=== PATIENT | female | born 1955 | race Caucasian/White ===

== ENCOUNTER 2016-06-10 20:31 | Inpatient (IN) | payer OTHER ==
[2016-06-10] MEDS ORDERED: NORMAL SALINE 1000 ML 2,000 ML IV PRN (21:38)
--- NOTE | 2016-06-10 21:44 | EKG REPORT ---
SEVERITY:- BORDERLINE ECG - SINUS TACHYCARDIA BORDERLINE T ABNORMALITIES, ANT-LAT LEADS : Confirmed by: Agustin Johns 10-Jun-2016 21:44:21
--- NOTE | 2016-06-10 21:49 | ER Document Report ---
ED General - General Chief Complaint: General Weakness Stated Complaint: WEAKNESS Time seen by provider: 21:46 Mode of Arrival: Medic Information source: Patient, Relative - son TRAVEL OUTSIDE OF THE [place] IN LAST 30 DAYS: No - HPI Patient complains to provider of: generalized weakness Onset: Just prior to arrival Onset/Duration: Sudden Quality of pain: No pain Associated symptoms: Nausea, Vomiting Exacerbated by: Denies Relieved by: Denies Similar symptoms previously: No Recently seen / treated by doctor: No Notes: Patient is a 61-year-old female brought to the emergency room by EMS after son called reporting patient to have generalized weakness and not acting herself throughout the day today, patient did have some vomiting earlier in the day, states her last urination was early this morning, she reports she had some flank pain yesterday evening but that has since resolved, she has some pressure sensation at the end of urination but denies any actual dysuria, patient denies any symptoms at present time, no sick contacts - Related Data Allergies/Adverse Reactions: No Known Drug Allergies Allergy (Verified 04/11/14 18:01) Past Medical History - General Information source: Patient - Social History Smoking Status: Never Smoker Family History: Reviewed & Not Pertinent - Past Medical History Cardiac Medical History: Reports: Hx Hypertension Endocrine Medical History: Reports: Hx Diabetes Mellitus Type 2 Past Surgical History: Reports: Hx Section, Hx Cholecystectomy - Immunizations Hx Diphtheria, Pertussis, Tetanus Vaccination: Yes Review of Systems - Review of Systems Constitutional: Malaise, Weakness EENT: No symptoms reported Cardiovascular: No symptoms reported Respiratory: No symptoms reported Gastrointestinal: Vomiting, Poor appetite, Poor fluid intake Genitourinary: Dysuria Female Genitourinary: No symptoms reported Musculoskeletal: No symptoms reported Skin: No symptoms reported Hematologic/Lymphatic: No symptoms reported Neurological/Psychological: No symptoms reported -: Yes All other systems reviewed and negative Physical Exam - Vital signs Vitals: Resp 16 06/10/16 21:02 Interpretation: Hypotensive, Tachycardic - General General appearance: Alert In distress: None - HEENT Head: Normocephalic, Atraumatic Eyes: Normal Conjunctiva: Normal Extraocular movements intact: Yes Eyelashes: Normal Pupils: PERRL Mucous membranes: Dry - Respiratory Respiratory status: No respiratory distress Chest status: Nontender Breath sounds: Normal Chest palpation: Normal - Cardiovascular Rhythm: Regular Heart sounds: Normal auscultation Murmur: No - Abdominal Inspection: Morbidly Obese Distension: No distension Bowel sounds: Normal Tenderness: Nontender Organomegaly: No organomegaly - Extremities General upper extremity: Normal inspection, Nontender, Normal color, Normal ROM , Normal temperature General lower extremity: Normal inspection, Nontender, Normal color, Normal ROM , Normal temperature. No: Mignon's sign - Neurological Neuro grossly intact: Yes Cognition: Normal Orientation: AAOx4 Tommy Coma Scale Eye Opening: Spontaneous Tommy Coma Scale Verbal: Oriented Mack Coma Scale Motor: Obeys Commands Mack Coma Scale Total: 15 Speech: Normal Motor strength normal: LUE, RUE, LLE, RLE Sensory: Normal - Psychological Associated symptoms: Normal affect, Normal mood - Skin Skin Temperature: Warm Skin Moisture: Dry Skin Color: Normal Course - Re-evaluation Re-evalutation: 06/11/16 03:56 Patient discussed with the hospitalist who agrees to admit for further evaluation and treatment - Vital Signs Vital signs: Temp Pulse Resp BP Pulse Ox 98.6 F 98 17 129/80 H 06/11/16 01:01 06/10/16 21:38 06/11/16 03:17 06/11/16 03:17 - Laboratory Result Diagrams: 06/10/16 21:35 06/10/16 22:38 Laboratory results interpreted by me: 06/10/16 06/10/16 06/10/16 21:35 22:05 22:38 WBC 27.1 H Seg Neuts % (Manual) 81 H Band Neutrophils % 9 H Lymphocytes % (Manual) 5 L Metamyelocytes % 1 H Abs Neuts (Manual) 24.7 H Sodium 134.4 L Potassium 6.6 H* Carbon Dioxide 19 L BUN 47 H Creatinine 2.65 H Est GFR ( Amer) 22 L Est GFR (Non-Af Amer) 18 L Glucose 342 H Urine Protein 100 H Urine Glucose (UA) 50 H Urine Blood MODERATE H Urine Nitrite POSITIVE H Ur Leukocyte Esterase LARGE H - Diagnostic Test Radiology reviewed: Image reviewed, Reports reviewed - EKG Interpretation by Me EKG shows normal: Sinus rhythm Rate: Tachycardia - Transfer of Care Care transferred to following provider: Dr. Magaña Critical Care Note - Critical Care Note Total time excluding time spent on procedures (mins): 60 Comments: Patient arrived hypotensive and tachycardic, with signs of sepsis, admitted to [facility] for further evaluation and treatment Discharge - Discharge Clinical Impression: Hyperkalemia Urinary tract infection Qualifiers: Urinary tract infection type: site unspecified Hematuria presence: without hematuria Qualified Code(s): N39.0 - Urinary tract infection, site not specified Acute renal failure Qualifiers: Acute renal failure type: unspecified Qualified Code(s): N17.9 - Acute kidney failure, unspecified Sepsis Qualifiers: Sepsis type: sepsis due to unspecified organism Qualified Code(s): A41.9 - Sepsis, unspecified organism Condition: Serious Disposition: ADMITTED INPATIENT Admitting Provider: Hospitalist Unit Admitted: [facility]
[2016-06-10 22:05] LABS: HEMATOCRIT 40.2 % (36.0-47.0); HEMOGLOBIN 13.1 g/dL (12.0-15.5); HGB HCT DIFFERENCE -0.9; MEAN CORPUSCULAR HEMOGLOBIN 28.8 pg (27.0-33.4); MEAN CORPUSCULAR HGB CONC 32.5 g/dL (32.0-36.0); MEAN CORPUSCULAR VOLUME 89 fl (80-97); RED BLOOD COUNT 4.54 10^6/uL (3.72-5.28); RED CELL DISTRIBUTION WIDTH 13.4 % (11.5-14.0); WHITE BLOOD COUNT 27.1 10^3/uL (4.0-10.5)
[2016-06-10 22:23] LABS: BAND NEUTROPHILS % (MANUAL) 9 % (3-5); BASOPHILS % (MANUAL) 0 % (0-2); EOSINOPHILS % (MANUAL) 0 % (0-6); LYMPHOCYTES % (MANUAL) 5 % (13-45); TOTAL CELLS COUNTED 100
[2016-06-10 22:24] LABS: RBC MORPHOLOGY COMMENT NORMO-CYTIC/CHROMIC
[2016-06-10 22:29] LABS: AMORPHOUS SEDIMENT,URINE TRACE /HPF; APPEARANCE,URINE CLOUDY; BILIRUBIN,URINE NEGATIVE (NEGATIVE); GLUCOSE, URINE 50 mg/dL (NEGATIVE); KETONES,URINE NEGATIVE (NEGATIVE); LEUKOCYTE ESTERASE,URINE LARGE (NEGATIVE); NITRITE,URINE POSITIVE (NEGATIVE); PROTEIN,URINE 100 mg/dL (NEGATIVE); URINE SPECIFIC GRAVITY 1.014; UROBILINOGEN,URINE NEGATIVE mg/dL (<2.0)
[2016-06-10] MEDS ORDERED: CEFTRIAXONE INJ 1000 MG VIAL IV ONE (22:36)
[2016-06-10 23:09] LABS: ALANINE AMINOTRANSFERASE 33 U/L (9-52); ALBUMIN 4.2 g/dL (3.5-5.0); ALKALINE PHOSPHATASE 60 U/L (38-126); ANION GAP 14 (5-19); ASPARTATE AMINO TRANSFERASE 24 U/L (14-36); BILIRUBIN,TOTAL 0.7 mg/dL (0.2-1.3); BLOOD UREA NITROGEN 47 mg/dL (7-20); CARBON DIOXIDE 19 mmol/L (22-30); CHLORIDE 101 mmol/L (98-107); CREATINE KINASE 31 U/L (30-135); CREATININE RESULT 2.65 mg/dL (0.52-1.25); GLUCOSE 342 mg/dL (75-110); LIPASE 80.5 U/L (23-300); SODIUM 134.4 mmol/L (137-145); TOTAL PROTEIN 7.1 g/dL (6.3-8.2)
[2016-06-10 23:12] LABS: POTASSIUM 6.6 mmol/L (3.6-5.0)
[2016-06-10] MEDS ORDERED: CALCIUM GLUCONATE 1000 MG/10 ML INJ IV ONE (23:15)
[2016-06-10] MEDS ORDERED: DEXTROSE 50%-WATER 25 GM/50 ML DISP.SYRIN IV ONE (23:15)
[2016-06-10] MEDS ORDERED: INSULIN REG, HUMAN 100 UNIT/ML 3 ML VIAL (PYX) IV ONE (23:15)
[2016-06-10] MEDS ORDERED: SODIUM POLYSTYRENE SULFONATE 15 GM/60 ML PO ONE (23:15)
[2016-06-10] MEDS ORDERED: NORMAL SALINE 1000 ML 1,000 ML IV PRN (23:25)
[2016-06-10 23:36] LABS: CREATINE KINASE MB < 0.22 ng/mL (<4.55)
[2016-06-10 23:37] LABS: TROPONIN I 0.035 ng/mL
[2016-06-11] MEDS ORDERED: DEXTROSE 50%-WATER 25 GM/50 ML DISP.SYRIN IV ONE (00:09)
[2016-06-11 04:45] LABS: ANION GAP 12 (5-19); BLOOD UREA NITROGEN 49 mg/dL (7-20); CALCIUM 9.3 mg/dL (8.4-10.2); CARBON DIOXIDE 21 mmol/L (22-30); CHLORIDE 103 mmol/L (98-107); CREATININE RESULT 2.84 mg/dL (0.52-1.25); GLUCOSE 279 mg/dL (75-110); SODIUM 136.3 mmol/L (137-145)
[2016-06-11 04:53] LABS: POTASSIUM 4.8 mmol/L (3.6-5.0)
[2016-06-11] MEDS ORDERED: DEXTROSE 50%-WATER 25 GM/50 ML DISP.SYRIN IV PRN ×2 (06:20)
[2016-06-11] MEDS ORDERED: DEXTROSE 40% GEL 15 GM TUBE PO PRN ×2 (06:20)
[2016-06-11] MEDS ORDERED: GLUCAGON,HUMAN RECOMB 1 MG INJ IM PRN (06:20)
[2016-06-11] MEDS ORDERED: PHARMACY COMMUNICATION ORDER MC SCH (06:30)
[2016-06-11] MEDS: NORMAL SALINE 1000 ML 1,000 ML IV PRN ×2 (06:54→18:27)
[2016-06-11 07:56] LABS: HEMATOCRIT 35.4 % (36.0-47.0); HEMOGLOBIN 11.7 g/dL (12.0-15.5); HGB HCT DIFFERENCE -0.3; MEAN CORPUSCULAR HGB CONC 32.9 g/dL (32.0-36.0); MEAN CORPUSCULAR VOLUME 88 fl (80-97); RED BLOOD COUNT 4.02 10^6/uL (3.72-5.28); RED CELL DISTRIBUTION WIDTH 13.6 % (11.5-14.0); WHITE BLOOD COUNT 24.8 10^3/uL (4.0-10.5)
[2016-06-11 08:08] LABS: ANION GAP 12 (5-19); BLOOD UREA NITROGEN 49 mg/dL (7-20); CARBON DIOXIDE 21 mmol/L (22-30); CHLORIDE 105 mmol/L (98-107); CREATININE RESULT 2.89 mg/dL (0.52-1.25); GLUCOSE 287 mg/dL (75-110); MAGNESIUM 1.3 mg/dL (1.6-2.3); POTASSIUM 4.8 mmol/L (3.6-5.0); SODIUM 138.1 mmol/L (137-145)
[2016-06-11 08:27] LABS: BAND NEUTROPHILS % (MANUAL) 3 % (3-5); BASOPHILS % (MANUAL) 0 % (0-2); EOSINOPHILS % (MANUAL) 0 % (0-6); LYMPHOCYTES % (MANUAL) 5 % (13-45); TOTAL CELLS COUNTED 100
[2016-06-11 08:29] LABS: PLATELET CLUMPS PRESENT; RBC MORPHOLOGY COMMENT NORMO-CYTIC/CHROMIC; TOXIC GRANULATION SLIGHT; TOXIC VACUOLATION PRESENT
[2016-06-11] MEDS: INSULIN LISPRO 100 UNIT/ML 3 ML VIAL SUBCUT PRN ×3 (09:00→23:25)
[2016-06-11] MEDS: DOCUSATE SODIUM 100 MG CAPSULE PO SCH ×2 (09:17→18:15)
--- NOTE | 2016-06-11 09:23 | PDOC H&P ---
History of Present Illness Admission Date/PCP: 06/11/16 02:04 MODE PEREZ Patient complains of: weakness History of Present Illness: ANNETTE GIBBS is a 61 year old morbidly obese type II diabetic female with underlying lower extremity diabetic neuropathy, easy bruising, and history of nephrolithiasis who presents to the emergency room for evaluation of approximate 24-hour history of progressive generalized weakness, several episodes of nausea and vomiting, and "liz" diarrhea. Weakness has progressed to the point since the onset of symptoms that she is not able to walk. No unusual oral intake. No friends or family with similar complaints. No fever or chills, chest or abdominal pain. In fact, denies any pain at all. Of note, very difficult getting any type of significant history from patient. Virtually all questions are answered with a simple "yes" or "no." She elaborates on virtually nothing. 2 sons are present by her side, with her approval, and do add a bit more information, but not much. Patient has been discussed with emergency room physician who evaluated the patient. . Laboratory results are listed in [employer] and are reviewed. X-ray summary results are listed below, with full report(s) reviewed. . EKG reviewed. And compared to tracing from September 102013. Social history/personal habits: . Son lives with her. 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 Normally she is ambulatory. No use of alcohol tobacco or illicit drugs. Allergies/adverse reactions are listed in [employer] and are reviewed. Home medications are reviewed bottle review and discussion with patient and [facility] Home medications initially autopopulated into [employer] may not accurately reflect patient's true medications, dosages, and/or frequencies. REVIEW OF SYSTEMS: Constitutional: No fever or chills. Eyes: Legally blind. ENT: No swallowing problems or complaints. No hearing problems or complaints. Pulmonary: No current complaints. Cardiovascular: No current complaints, including chest pain. Gastrointestinal: See history and present illness. Skin: No current complaints, including rashes. Hematologic: Easy bruising. Neurologic: Bilateral lower extremity neuropathy. Musculoskeletal: No current complaints, including painful joints. Psychiatric: No current complaints, including anxiety or depression. Endocrine: No current complaints, including polyuria. Genitourinary: No current complaints, including dysuria. PHYSICAL EXAMINATION: 5 feet 6 inches tall. 119.4 kg. BMI 42.5 kg/m. Blood pressure 119/87. Respirations are 20 and unlabored. Pulse 116 and regular. 92% saturation on room air. Morbidly obese somewhat chronically ill-appearing female who appears a number of years older than her stated age. Somewhat fatigued appearance. Female emergency room nurse Kelsi present. Skin is warm and dry. No grossly obvious evidence of rash in areas of skin examined. No subcutaneous nodules palpated. ENT: Hearing grossly normal to normal conversation. Tongue midline on protrusion pink and slightly tacky. Eyes: No scleral icterus. Pupils equal and reactive to light at 4 mm. [place] conjunctivae. Neck is supple and nontender to gentle active range of motion and palpation. Midline trachea. No palpable thyroid nodule mass enlargement or tenderness. Lymphatic: No palpable cervical or clavicular nodes. Neck and lymphatic exams limited by patient body habitus. Psychiatric: Fair to reasonable insight into acute and chronic medical issues. Oriented to time location and why here. Rather flat affect. Slightly odd affect at times. Very stoic individual. Lungs: Auscultation reveals clear and equal breath sounds bilaterally. No use of accessory respiratory muscles. Cardiovascular: Heart regular rate and rhythm, without gallop murmur or rub. No carotid or abdominal aortic bruits. No ankle or pedal edema. Faintly palpable dorsalis pedis pulses. Abdomen: soft, obese, nontender with positive bowel sounds. Unable to adequately evaluate abdomen for masses or organomegaly due to body habitus. Extremities: Feet are warm and dry. No calf tenderness to compression. No grossly obvious visual evidence of calf swelling. Gentle manipulation of lower extremities fails to reveal any obvious evidence of injury or instability to knees hips or ankles. Neurologic: Moves upper extremities grossly normally. Patellar reflexes 1+ and symmetric. Absent Babinski. Light touch decreased at feet, a chronic finding according to patient.. Dorsiflexion and plantarflexion of feet 5 / 5 and symmetric. Past Medical History Cardiac Medical History: Reports: Hypertension Denies: Congestive Heart Failure, DVT, Myocardial Infarction, Hyperlipidema, Pulmonary Embolism Pulmonary Medical History: Denies: Asthma, Chronic Obstructive Pulmonary Disease (COPD) EENT Medical History: Reports: Eyes - Legally blind Denies: Ears, Throat Neurological Medical History: Reports: Other - Diabetic neuropathy affecting her lower extremities. Denies: Hemorrhagic CVA, Ischemic CVA, Seizures Endocrine Medical History: Reports: Diabetes Mellitus Type 2 Denies: Diabetes Mellitus Type 1, Hyperthyroidism, Hypothyroidism Renal/ Medical History: Reports: Other - History of nephrolithiasis, 2016 Denies: Chronic Kidney Disease GI Medical History: Denies: Cirrhosis, Gastroesophageal Reflux Disease, Hepatitis, Peptic Ulcer Disease Musculoskeltal Medical History: Reports: None Skin Medical History: Reports: None Denies: Eczema, Psoriasis Psychiatric Medical History: Denies: Alcohol Dependency, Depression, General Anxiety Disorder, Substance Abuse, Tobacco Dependency Hematology: Reports: Other - Easy bruising Infectious Medical History: Denies: Hepatitis B, Hepatitis C Past Surgical History Past Surgical History: Reports: Section, Cholecystectomy Social History Information Source: Patient, Relative, Emergency Med Personnel, [facility] Records Lives with: Family Smoking Status: Never Smoker Frequency of Alcohol Use: None Hx Recreational Drug Use: No Hx Prescription Drug Abuse: No - Advance Directive Resuscitation Status: Full Code Surrogate healthcare decision maker:: Sons Family History Family History: Reviewed & Not Pertinent Parental Family History Reviewed: Yes Children Family History Reviewed: Yes Sibling(s) Family History Reviewed.: Yes Medication/Allergy Home Medications: Gabapentin [Neurontin 300 mg Capsule] 300 mg PO TID 09/10/13 Aspirin [Aspirin 325 mg Tablet] 325 mg PO DAILY 06/11/16 Nystatin [Mycostatin Topical Powder 15 gm] 1 applic TP BID #1 bottle 06/17/16 Sitagliptin Phosphate [Januvia 50 mg Tablet] 50 mg PO BIDACBS #60 tablet Allergies/Adverse Reactions: ciprofloxacin [From Cipro] Allergy (Verified 06/11/16 07:10) clindamycin Adverse Reaction (Verified 06/11/16 07:10) Physical Exam Vital Signs: Temp Pulse Resp BP Pulse Ox 98.6 F 112 H 22 H 123/67 90 L 06/11/16 03:38 06/11/16 03:38 06/11/16 05:01 06/11/16 05:01 06/11/16 05:01 Results Laboratory Results: 06/11/16 04:16 06/11/16 04:16 Sodium 136.3 L Potassium 4.8 D Chloride 103 Carbon Dioxide 21 L Anion Gap 12 BUN 49 H Creatinine 2.84 H Est GFR ( Amer) 20 L Est GFR (Non-Af Amer) 17 L Glucose 279 H Calcium 9.3 Impressions: Chest X-Ray 06/10/16 22:28 IMPRESSION: No acute radiographic finding in the chest. Renal Ultrasound 06/11/16 00:00 IMPRESSION: No hydronephrosis. No renal calculi identified by ultrasound. Assessment & Plan - Diagnosis (1) HTN (hypertension) Qualifiers: Hypertension type: essential hypertension Qualified Code(s): I10 - Essential (primary) hypertension Is this a current diagnosis for this admission?: YesPlan: Resume home medications as appropriate once these have been reviewed. (2) Diabetes mellitus type 2 in obese Is this a current diagnosis for this admission?: YesPlan: Resume home medications as appropriate once these have been reviewed. Accu- Cheks with appropriate sliding scale coverage. (3) Urinary tract infection Qualifiers: Urinary tract infection type: site unspecified Hematuria presence: with hematuria Qualified Code(s): N39.0 - Urinary tract infection, site not specified Is this a current diagnosis for this admission?: YesPlan: Blood and urine cultures. Rocephin. I have strongly encouraged patient not to get out of bed without notifying staff , to avoid a fall with injury. Knee high SCDs for DVT prophylaxis, along with subcutaneous heparin. Impression and plans were discussed with patient, and sons, all of whom concur. Time spent in evaluation and management of patient: 61 minutes. (4) Acute renal failure Qualifiers: Acute renal failure type: unspecified Qualified Code(s): N17.9 - Acute kidney failure, unspecified Is this a current diagnosis for this admission?: YesPlan: Suspect mostly prerenal in origin, with nausea vomiting, some diarrhea, and poor by mouth intake over the last day or so. IV fluids. Follow-up chemistry. (5) Hyperkalemia Is this a current diagnosis for this admission?: YesPlan: Resolved with treatment. Follow-up chemistry. - Inpatient Certification Based on my medical assessment, after consideration of the patient's comorbidities, presenting symptoms, or acuity I expect that the services needed warrant INPATIENT care.: Yes I certify that my determination is in accordance with my understanding of Medicare's requirements for reasonable and necessary INPATIENT services [42 CFR 412.3e].: Yes Medical Necessity: Need Close Monitoring Due to Risk of Patient Decompensation, Need For IV Fluids, Need For Continuous Telemetry Monitoring, Need for IV Antibiotics, Risk of Complication if Not Cared For in Hospital, Risk of Diagnosis Which Will Require Inpatient Eval/Care/Monitoring Post Hospital Care: D/C or Transfer Summary
[2016-06-11] MEDS ORDERED: GABAPENTIN 300 MG CAPSULE PO SCH (10:00)
[2016-06-11] MEDS ORDERED: CEFTRIAXONE 1 GM/D5W RTU 50 ML IV SCH (10:00)
[2016-06-11] MEDS: ASPIRIN 325 MG TABLET PO SCH (10:22)
[2016-06-11] MEDS ORDERED: MAGNESIUM SULFATE/D5W 1 GM/100 ML RTUPB IV ONE (10:30)
[2016-06-11] MEDS: HEPARIN SOD (PORCINE) 5,000 UNIT/ML 1 ML SYRINGE SUBCUT SCH ×2 (13:25→23:25)
[2016-06-11] MEDS: ACETAMINOPHEN 325 MG TABLET PO PRN ×2 (15:51→23:36)
[2016-06-11] MEDS ORDERED: NORMAL SALINE 500 ML IV ONE (16:45)
[2016-06-11] MEDS: NYSTATIN TOPICAL POWDER 15 GM TP SCH (18:26)
[2016-06-11] MEDS ORDERED: VANCOMYCIN HCL 0 MG in DEXTROSE 5%-WATER 250 ML IV NR (21:30)
[2016-06-11] MEDS ORDERED: VANCOMYCIN HCL 1,500 MG in DEXTROSE 5%-WATER 250 ML IV ONE (22:00)
[2016-06-11] MEDS ORDERED: CEFEPIME HCL 2 GM in DEXTROSE 5%-WATER 50 ML IV SCH (22:00)
[2016-06-11] MEDS ORDERED: CEFEPIME 2 GM/D5W RTU 50 ML IV SCH (22:00)
[2016-06-11] MEDS ORDERED: INSULIN LISPRO 100 UNIT/ML 3 ML VIAL ONE (23:12)
[2016-06-11] MEDS: NORMAL SALINE 1000 ML 1,000 ML IV SCH (23:45)
[2016-06-12] MEDS: ACETAMINOPHEN 325 MG TABLET PO PRN (01:13)
[2016-06-12] MEDS: NORMAL SALINE 1000 ML 1,000 ML IV SCH (02:01)
[2016-06-12] MEDS ORDERED: ACETAMINOPHEN 325 MG TABLET PO PRN ×3 (02:38→08:42)
[2016-06-12] MEDS: HEPARIN SOD (PORCINE) 5,000 UNIT/ML 1 ML SYRINGE SUBCUT SCH ×3 (05:20→22:55)
[2016-06-12 05:24] LABS: HEMATOCRIT 31.7 % (36.0-47.0); HEMOGLOBIN 10.3 g/dL (12.0-15.5); HGB HCT DIFFERENCE -0.8; MEAN CORPUSCULAR HEMOGLOBIN 28.6 pg (27.0-33.4); MEAN CORPUSCULAR HGB CONC 32.5 g/dL (32.0-36.0); MEAN CORPUSCULAR VOLUME 88 fl (80-97); RED CELL DISTRIBUTION WIDTH 13.5 % (11.5-14.0); WHITE BLOOD COUNT 14.8 10^3/uL (4.0-10.5)
[2016-06-12 05:51] LABS: ANION GAP 10 (5-19); BLOOD UREA NITROGEN 53 mg/dL (7-20); CALCIUM 7.4 mg/dL (8.4-10.2); CARBON DIOXIDE 18 mmol/L (22-30); CHLORIDE 108 mmol/L (98-107); CREATININE RESULT 2.78 mg/dL (0.52-1.25); GLUCOSE 180 mg/dL (75-110); MAGNESIUM 1.4 mg/dL (1.6-2.3); POTASSIUM 4.5 mmol/L (3.6-5.0); SODIUM 135.8 mmol/L (137-145)
[2016-06-12] MEDS: NORMAL SALINE 1000 ML 1,000 ML IV PRN ×3 (06:02→22:55)
--- NOTE | 2016-06-12 08:57 | PDOC PROGRESS REPORT ---
Subjective Progress Note for:: 06/12/16 Subjective:: Patient admitted for altered mental status, hypotension, sepsis, UTI. Episode of low blood pressure last night requiring bolus of normal saline as reported. Had temperature spikes as well. Patient placed on cooling blanket. On a needed Tylenol as well. Patient denies any diarrhea at all. Denies coughing or chest congestion. No paroxysmal nocturnal dyspnea nor orthopnea. Patient reports nausea with food intake. No vomiting however. Urine culture growing gram-negative rods. Ceftriaxone was shifted to cefepime. Vancomycin was likewise started. Physical Exam Vital Signs: Temp Pulse Resp BP Pulse Ox 101.0 F H 123 H 19 115/68 92 06/12/16 07:28 06/12/16 07:28 06/12/16 07:28 06/12/16 07:28 06/12/16 07:28 Intake & Output 06/11/16 06/12/16 06/13/16 06:59 06:59 06:59 Intake Total 5921 Output Total 750 Balance 5171 Weight 119.4 kg 141.8 kg General appearance: PRESENT: no acute distress, morbidly obese Head exam: PRESENT: normocephalic Eye exam: PRESENT: EOMI Mouth exam: PRESENT: moist, neck supple Neck exam: ABSENT: JVD Respiratory exam: PRESENT: clear to auscultation fara. ABSENT: rhonchi, wheezes Cardiovascular exam: PRESENT: RRR. ABSENT: gallop GI/Abdominal exam: PRESENT: normal bowel sounds, soft, tenderness - Minimal diffusely Extremities exam: PRESENT: other - Trace edema bilateral. RAMIRO hose in place. Neurological exam: PRESENT: alert, awake, oriented to situation Skin exam: PRESENT: dry, warm. ABSENT: cyanosis Results Laboratory Results: 06/12/16 05:05 06/12/16 05:05 06/12/16 06/12/16 05:05 05:05 WBC 14.8 H RBC 3.60 L Hgb 10.3 L Hct 31.7 L MCV 88 MCH 28.6 MCHC 32.5 RDW 13.5 Plt Count 169 Sodium 135.8 L Potassium 4.5 Chloride 108 H Carbon Dioxide 18 L Anion Gap 10 BUN 53 H Creatinine 2.78 H Est GFR ( Amer) 21 L Est GFR (Non-Af Amer) 17 L Glucose 180 H Calcium 7.4 L Magnesium 1.4 L 06/11/16 07:40 Troponin I 0.029 Impressions: Chest X-Ray 06/10/16 22:28 IMPRESSION: No acute radiographic finding in the chest. Renal Ultrasound 06/11/16 00:00 IMPRESSION: No hydronephrosis. No renal calculi identified by ultrasound. Assessment & Plan - Diagnosis (1) Hypotension Qualifiers: Hypotension type: unspecified hypotension type Qualified Code(s): I95.9 - Hypotension, unspecified Is this a current diagnosis for this admission?: Yes (2) Acute renal failure Qualifiers: Acute renal failure type: unspecified Qualified Code(s): N17.9 - Acute kidney failure, unspecified Is this a current diagnosis for this admission?: Yes (3) Sepsis Qualifiers: Sepsis type: sepsis due to unspecified organism Qualified Code(s): A41.9 - Sepsis, unspecified organism (4) Hyperkalemia Is this a current diagnosis for this admission?: Yes (5) Urinary tract infection Qualifiers: Urinary tract infection type: site unspecified Hematuria presence: with hematuria Qualified Code(s): N39.0 - Urinary tract infection, site not specified Is this a current diagnosis for this admission?: Yes (6) Diabetes mellitus type 2 in obese Is this a current diagnosis for this admission?: Yes (7) HTN (hypertension) Qualifiers: Hypertension type: essential hypertension Qualified Code(s): I10 - Essential (primary) hypertension Is this a current diagnosis for this admission?: Yes (8) Morbid obesity with BMI of 40.0-44.9, adult Is this a current diagnosis for this admission?: Yes (9) Peripheral neuropathy Qualifiers: Peripheral neuropathy type: polyneuropathy, unspecified Qualified Code(s): G62.9 - Polyneuropathy, unspecified Is this a current diagnosis for this admission?: Yes - Time Time Spent with patient: 25-34 minutes - Plan Summary Plan Summary: We will go ahead and change the antibiotics to Invanz. Possibility of ESBL infection. History of Escherichia coli in the past. Change Tylenol 2 every 4 hours as needed. Cooling blanket to keep temperature below 100F. Continue hydration. Continue to monitor for congestion and serum creatinine. Level is improving slowly. We'll try to advance her diet. Continue supportive care.
[2016-06-12] MEDS ORDERED: GABAPENTIN 100 MG CAPSULE PO SCH (10:00)
[2016-06-12] MEDS ORDERED: ERTAPENEM SODIUM INJ 1 GM VIAL IV SCH (10:00)
[2016-06-12] MEDS: ASPIRIN 325 MG TABLET PO SCH (10:36)
[2016-06-12] MEDS: DOCUSATE SODIUM 100 MG CAPSULE PO SCH ×2 (10:36→17:18)
[2016-06-12] MEDS: NYSTATIN TOPICAL POWDER 15 GM TP SCH ×2 (10:37→17:20)
[2016-06-12] MEDS: INSULIN LISPRO 100 UNIT/ML 3 ML VIAL SUBCUT PRN ×4 (10:42→23:17)
[2016-06-12] MEDS: ERTAPENEM SODIUM 1 GM in NORMAL SALINE 50 ML IV SCH (12:44)
[2016-06-12] MEDS: GABAPENTIN 300 MG CAPSULE PO SCH (17:19)
[2016-06-12] MEDS ORDERED: VANCOMYCIN HCL 1,000 MG in DEXTROSE 5%-WATER 250 ML IV SCH (22:00)
[2016-06-13] MEDS: GABAPENTIN 300 MG CAPSULE PO SCH ×3 (01:39→19:55)
[2016-06-13 05:27] LABS: HEMATOCRIT 30.5 % (36.0-47.0); HGB HCT DIFFERENCE -0.5; MEAN CORPUSCULAR HEMOGLOBIN 28.9 pg (27.0-33.4); MEAN CORPUSCULAR HGB CONC 32.6 g/dL (32.0-36.0); MEAN CORPUSCULAR VOLUME 89 fl (80-97); RED BLOOD COUNT 3.44 10^6/uL (3.72-5.28); RED CELL DISTRIBUTION WIDTH 13.6 % (11.5-14.0); WHITE BLOOD COUNT 7.4 10^3/uL (4.0-10.5)
[2016-06-13] MEDS: HEPARIN SOD (PORCINE) 5,000 UNIT/ML 1 ML SYRINGE SUBCUT SCH (05:34)
[2016-06-13 05:42] LABS: ANION GAP 8 (5-19); BLOOD UREA NITROGEN 55 mg/dL (7-20); CALCIUM 7.3 mg/dL (8.4-10.2); CARBON DIOXIDE 18 mmol/L (22-30); CHLORIDE 109 mmol/L (98-107); CREATININE RESULT 2.99 mg/dL (0.52-1.25); GLUCOSE 175 mg/dL (75-110); POTASSIUM 4.4 mmol/L (3.6-5.0); SODIUM 134.9 mmol/L (137-145)
[2016-06-13] MEDS: NORMAL SALINE 1000 ML 1,000 ML IV PRN ×2 (05:47→14:20)
[2016-06-13 09:28] LABS: ABSOLUTE EOSINOPHILS # (AUTO) 0.1 10^3/uL (0.0-0.6); ABSOLUTE LYMPHOCYTES (AUTO) 0.8 10^3/uL (0.5-4.7); ABSOLUTE MONOCYTES (AUTO) 0.4 10^3/uL (0.1-1.4); ABSOLUTE NEUT (AUTO) 5.6 10^3/uL (1.7-8.2); BASOPHILS % (AUTO) 0.6 % (0-2); EOSINOPHILS % (AUTO) 1.3 % (0-6); HEMATOCRIT 28.4 % (36.0-47.0); HEMOGLOBIN 9.1 g/dL (12.0-15.5); HGB HCT DIFFERENCE -1.1; LYMPHOCYTES % (AUTO) 10.9 % (13-45); MEAN CORPUSCULAR HEMOGLOBIN 28.6 pg (27.0-33.4); MEAN CORPUSCULAR HGB CONC 32.2 g/dL (32.0-36.0); MEAN CORPUSCULAR VOLUME 89 fl (80-97); MONOCYTES % (AUTO) 6.2 % (3-13); RED BLOOD COUNT 3.19 10^6/uL (3.72-5.28); RED CELL DISTRIBUTION WIDTH 13.7 % (11.5-14.0); WHITE BLOOD COUNT 6.9 10^3/uL (4.0-10.5)
[2016-06-13 10:24] LABS: ARTERIAL BLOOD BASE EXCESS -8.4 mmol/L; ARTERIAL BLOOD O2 SATURATION 95.5 % (94-98)
[2016-06-13] MEDS: ASPIRIN 325 MG TABLET PO SCH (10:31)
[2016-06-13] MEDS: DOCUSATE SODIUM 100 MG CAPSULE PO SCH ×2 (10:31→19:55)
[2016-06-13] MEDS: ERTAPENEM SODIUM 1 GM in NORMAL SALINE 50 ML IV SCH (10:31)
[2016-06-13] MEDS: NYSTATIN TOPICAL POWDER 15 GM TP SCH ×2 (10:33→19:33)
[2016-06-13] MEDS ORDERED: PHARMACY COMMUNICATION ORDER MC NR (11:00)
[2016-06-13 11:38] LABS: ALBUMIN 2.4 g/dL (3.5-5.0)
[2016-06-13 16:58] LABS: APPEARANCE,URINE CLOUDY; BILIRUBIN,URINE NEGATIVE (NEGATIVE); GLUCOSE, URINE NEGATIVE (NEGATIVE); KETONES,URINE NEGATIVE (NEGATIVE); LEUKOCYTE ESTERASE,URINE LARGE (NEGATIVE); NITRITE,URINE NEGATIVE (NEGATIVE); PROTEIN,URINE 30 mg/dL (NEGATIVE); URINE SPECIFIC GRAVITY 1.009; UROBILINOGEN,URINE NEGATIVE mg/dL (<2.0)
[2016-06-13 17:21] LABS: URINE CREATININE 52.9 mg/dL (15-278)
[2016-06-13] MEDS ORDERED: ERTAPENEM SODIUM 0.5 GM in NORMAL SALINE 50 ML IV SCH (18:00)
[2016-06-13] MEDS: INSULIN LISPRO 100 UNIT/ML 3 ML VIAL SUBCUT PRN (23:00)
--- NOTE | 2016-06-14 00:30 | PDOC PROGRESS REPORT ---
Subjective Progress Note for:: 06/13/16 Subjective:: Patient admits to constipation. Patient denies chest pain, shortness of breath, abdominal pain, nausea, vomiting , fevers, chills, diarrhea, headache, new onset weakness. Physical Exam Vital Signs: Temp Pulse Resp BP Pulse Ox 97.8 F 89 20 79/52 L 98 06/12/16 23:26 06/13/16 02:00 06/12/16 23:26 06/12/16 23:26 06/12/16 23:26 Intake & Output 06/12/16 06/13/16 06/14/16 06:59 06:59 06:59 Intake Total 5921 985 Output Total 750 945 Balance 5171 40 Weight 141.8 kg 141.8 kg Exam: General: Obese, older than stated age appearing, chronically ill-appearing, Awake alert and oriented x3, no acute respiratory distress HEENT: AT/NC, oropharynx is moist, pink, no scleral icterus, no conjunctival injection Neck: No JVD, trachea midline Chest: Clear to auscultation bilaterally, no wheezes rhonchi or rales CV: Regular rate and rhythm, normal S1 and S2, no murmur, rub, or gallop Abdomen: Soft, nontender to palpation, nondistended, active bowel sounds; no rebound, rigidity, or guarding Extremities: No cyanosis, clubbing or edema Neuro: Patient functionally blind, Cranial nerves III through XII are grossly intact without focal deficits; awake alert and oriented x3 Psych: Normal mood and affect Results Laboratory Results: 06/13/16 04:59 06/13/16 04:59 06/13/16 06/13/16 04:59 04:59 WBC 7.4 RBC 3.44 L Hgb 10.0 L Hct 30.5 L MCV 89 MCH 28.9 MCHC 32.6 RDW 13.6 Plt Count 117 L Sodium 134.9 L Potassium 4.4 Chloride 109 H Carbon Dioxide 18 L Anion Gap 8 BUN 55 H Creatinine 2.99 H Est GFR ( Amer) 19 L Est GFR (Non-Af Amer) 16 L Glucose 175 H Calcium 7.3 L 06/11/16 07:40 Troponin I 0.029 Impressions: Chest X-Ray 06/10/16 22:28 IMPRESSION: No acute radiographic finding in the chest. Renal Ultrasound 06/11/16 00:00 IMPRESSION: No hydronephrosis. No renal calculi identified by ultrasound. Assessment & Plan - Diagnosis (1) Sepsis Qualifiers: Sepsis type: Escherichia coli Qualified Code(s): A41.51 - Sepsis due to Escherichia coli [E. coli] Is this a current diagnosis for this admission?: YesPlan: Patient with Escherichia coli sepsis secondary to UTI. Continue Invanz pending second organism. (2) Acute renal failure Qualifiers: Acute renal failure type: unspecified Qualified Code(s): N17.9 - Acute kidney failure, unspecified Is this a current diagnosis for this admission?: YesPlan: Patient had hypotension requiring IV fluid bolus. Will increase patient's IV fluids at this time. Will repeat a urine sodium as I suspect patient is likely volume replete but is in the nonoliguric phase of ATN. Will consult nephrology. (3) ATN (acute tubular necrosis) Is this a current diagnosis for this admission?: Yes (4) Hyperkalemia Is this a current diagnosis for this admission?: Yes (5) Hypotension Qualifiers: Hypotension type: unspecified hypotension type Qualified Code(s): I95.9 - Hypotension, unspecified Is this a current diagnosis for this admission?: YesPlan: Improved with fluids (6) Urinary tract infection Qualifiers: Urinary tract infection type: site unspecified Hematuria presence: with hematuria Qualified Code(s): N39.0 - Urinary tract infection, site not specified Is this a current diagnosis for this admission?: Yes (7) Diabetes mellitus type 2 in obese Is this a current diagnosis for this admission?: YesPlan: Continue sliding scale insulin. (8) Morbid obesity with BMI of 40.0-44.9, adult Is this a current diagnosis for this admission?: Yes - Time Time Spent with patient: 25-34 minutes Medications reviewed and adjusted accordingly: Yes
[2016-06-14] MEDS: GABAPENTIN 300 MG CAPSULE PO SCH ×3 (01:26→17:56)
[2016-06-14] MEDS: NORMAL SALINE 1000 ML 1,000 ML IV PRN ×2 (07:40→13:23)
[2016-06-14 08:08] LABS: ABSOLUTE EOSINOPHILS # (AUTO) 0.1 10^3/uL (0.0-0.6); ABSOLUTE LYMPHOCYTES (AUTO) 0.9 10^3/uL (0.5-4.7); ABSOLUTE MONOCYTES (AUTO) 0.6 10^3/uL (0.1-1.4); ABSOLUTE NEUT (AUTO) 3.6 10^3/uL (1.7-8.2); BASOPHILS % (AUTO) 0.5 % (0-2); EOSINOPHILS % (AUTO) 2.4 % (0-6); HEMATOCRIT 28.3 % (36.0-47.0); HEMOGLOBIN 9.3 g/dL (12.0-15.5); HGB HCT DIFFERENCE -0.4; LYMPHOCYTES % (AUTO) 17.1 % (13-45); MEAN CORPUSCULAR HGB CONC 32.8 g/dL (32.0-36.0); MEAN CORPUSCULAR VOLUME 88 fl (80-97); MONOCYTES % (AUTO) 10.7 % (3-13); RED BLOOD COUNT 3.21 10^6/uL (3.72-5.28); SEGMENTED NEUTROPHILS % (AUTO) 69.3 % (42-78); WHITE BLOOD COUNT 5.3 10^3/uL (4.0-10.5)
[2016-06-14 08:31] LABS: ANION GAP 11 (5-19); BLOOD UREA NITROGEN 48 mg/dL (7-20); CALCIUM 7.8 mg/dL (8.4-10.2); CARBON DIOXIDE 17 mmol/L (22-30); CHLORIDE 111 mmol/L (98-107); CREATININE RESULT 2.39 mg/dL (0.52-1.25); GLUCOSE 145 mg/dL (75-110); MAGNESIUM 1.5 mg/dL (1.6-2.3); POTASSIUM 4.2 mmol/L (3.6-5.0); SODIUM 138.9 mmol/L (137-145)
[2016-06-14] MEDS: DOCUSATE SODIUM 100 MG CAPSULE PO SCH ×2 (10:18→17:58)
[2016-06-14] MEDS: ASPIRIN 325 MG TABLET PO SCH (10:18)
[2016-06-14] MEDS: NYSTATIN TOPICAL POWDER 15 GM TP SCH ×2 (10:19→17:57)
[2016-06-14] MEDS: INSULIN LISPRO 100 UNIT/ML 3 ML VIAL SUBCUT PRN ×3 (13:24→21:35)
[2016-06-14] MEDS ORDERED: NORMAL SALINE 1000 ML 1,000 ML IV PRN (16:03)
--- NOTE | 2016-06-14 17:15 | PDOC PROGRESS REPORT ---
Subjective Progress Note for:: 06/14/16 Subjective:: Patient is working with physical therapy when I see her. Patient reports an approximate one-week of severe weakness coinciding with her illness. Patient denies chest pain, shortness of breath, abdominal pain, nausea, vomiting , fevers, chills, diarrhea, constipation, headache, new onset weakness. Physical Exam Vital Signs: Temp Pulse Resp BP Pulse Ox 98.5 F 84 16 116/79 92 06/13/16 23:07 06/14/16 02:00 06/13/16 23:07 06/13/16 23:07 06/13/16 23:07 Intake & Output 06/13/16 06/14/16 06/15/16 06:59 06:59 06:59 Intake Total 3195 3364 Output Total 1625 2910 Balance 1570 454 Weight 138.6 kg 139.2 kg Exam: General: Obese, older than stated age appearing, chronically ill-appearing, Awake alert and oriented x3, no acute respiratory distress HEENT: AT/NC, oropharynx is moist, pink, no scleral icterus, no conjunctival injection Neck: No JVD, trachea midline Chest: Clear to auscultation bilaterally, no wheezes rhonchi or rales CV: Regular rate and rhythm, normal S1 and S2, no murmur, rub, or gallop Abdomen: Soft, nontender to palpation, nondistended, active bowel sounds; no rebound, rigidity, or guarding Extremities: No cyanosis, clubbing or edema Neuro: Patient functionally blind, Cranial nerves III through XII are grossly intact without focal deficits; awake alert and oriented x3 Psych: Normal mood and affect Results Laboratory Results: 06/13/16 09:20 06/13/16 04:59 06/13/16 06/13/16 06/13/16 09:20 10:12 11:15 WBC 6.9 RBC 3.19 L Hgb 9.1 L Hct 28.4 L MCV 89 MCH 28.6 MCHC 32.2 RDW 13.7 Plt Count 143 L Seg Neutrophils % 81.0 H Lymphocytes % 10.9 L Monocytes % 6.2 Eosinophils % 1.3 Basophils % 0.6 Absolute Neutrophils 5.6 Absolute Lymphocytes 0.8 Absolute Monocytes 0.4 Absolute Eosinophils 0.1 Absolute Basophils 0.0 Carbonic Acid 0.93 L HCO3/H2CO3 Ratio 17:1 ABG pH 7.34 L ABG pCO2 31.0 L ABG pO2 81.2 ABG HCO3 16.3 L ABG O2 Saturation 95.5 ABG Base Excess -8.4 FiO2 ROOM AIR Albumin 2.4 L Urine Color Urine Appearance Urine pH Ur Specific [place] Urine Protein Urine Glucose (UA) Urine Ketones Urine Blood Urine Nitrite Ur Leukocyte Esterase Urine WBC (Auto) Urine RBC (Auto) Stool Occult Blood 06/13/16 06/13/16 16:12 20:15 WBC RBC Hgb Hct MCV MCH MCHC RDW Plt Count Seg Neutrophils % Lymphocytes % Monocytes % Eosinophils % Basophils % Absolute Neutrophils Absolute Lymphocytes Absolute Monocytes Absolute Eosinophils Absolute Basophils Carbonic Acid HCO3/H2CO3 Ratio ABG pH ABG pCO2 ABG pO2 ABG HCO3 ABG O2 Saturation ABG Base Excess FiO2 Albumin Urine Color YELLOW Urine Appearance CLOUDY Urine pH 5.0 Ur Specific [place] 1.009 Urine Protein 30 H Urine Glucose (UA) NEGATIVE Urine Ketones NEGATIVE Urine Blood MODERATE H Urine Nitrite NEGATIVE Ur Leukocyte Esterase LARGE H Urine WBC (Auto) 71 Urine RBC (Auto) 6 Stool Occult Blood POSITIVE 06/11/16 07:40 Troponin I 0.029 Impressions: Chest X-Ray 06/10/16 22:28 IMPRESSION: No acute radiographic finding in the chest. Renal Ultrasound 06/11/16 00:00 IMPRESSION: No hydronephrosis. No renal calculi identified by ultrasound. Assessment & Plan - Diagnosis (1) Sepsis Qualifiers: Sepsis type: Escherichia coli Qualified Code(s): A41.51 - Sepsis due to Escherichia coli [E. coli] Is this a current diagnosis for this admission?: YesPlan: Patient with Escherichia coli sepsis secondary to UTI. Patient also growing out Streptococcus viridans. We'll transition patient to Augmentin renally adjusted. (2) Acute renal failure Qualifiers: Acute renal failure type: unspecified Qualified Code(s): N17.9 - Acute kidney failure, unspecified Is this a current diagnosis for this admission?: YesPlan: Patient had hypotension requiring IV fluid bolus. Will increase patient's IV fluids at this time. Given a high urine sodium as I suspect patient is likely volume replete but is in the nonoliguric phase of ATN. Will consult nephrology. (3) ATN (acute tubular necrosis) Is this a current diagnosis for this admission?: Yes (4) Hyperkalemia Is this a current diagnosis for this admission?: Yes (5) Hypotension Qualifiers: Hypotension type: unspecified hypotension type Qualified Code(s): I95.9 - Hypotension, unspecified Is this a current diagnosis for this admission?: Yes (6) Urinary tract infection Qualifiers: Urinary tract infection type: site unspecified Hematuria presence: with hematuria Qualified Code(s): N39.0 - Urinary tract infection, site not specified Is this a current diagnosis for this admission?: Yes (7) Diabetes mellitus type 2 in obese Is this a current diagnosis for this admission?: Yes (8) Morbid obesity with BMI of 40.0-44.9, adult Is this a current diagnosis for this admission?: Yes (9) Ambulatory dysfunction Is this a current diagnosis for this admission?: YesPlan: [facility] need [facility] go to [facility]. - Time Time Spent with patient: 25-34 minutes Medications reviewed and adjusted accordingly: Yes Anticipated discharge: Acute Rehab
[2016-06-14] MEDS ORDERED: MAGNESIUM SULFATE/D5W 1 GM/100 ML RTUPB IV ONE (18:00)
[2016-06-14] MEDS: AMOXICILLIN TR/POT CLAVULANATE 500-125 MG TAB PO SCH (21:30)
[2016-06-15] MEDS: GABAPENTIN 300 MG CAPSULE PO SCH ×3 (02:45→17:49)
[2016-06-15 09:43] LABS: ANION GAP 9 (5-19); BLOOD UREA NITROGEN 41 mg/dL (7-20); CALCIUM 8.6 mg/dL (8.4-10.2); CARBON DIOXIDE 20 mmol/L (22-30); CHLORIDE 110 mmol/L (98-107); CREATININE RESULT 1.91 mg/dL (0.52-1.25); GLUCOSE 185 mg/dL (75-110); POTASSIUM 4.2 mmol/L (3.6-5.0); SODIUM 139.3 mmol/L (137-145)
[2016-06-15] MEDS: DOCUSATE SODIUM 100 MG CAPSULE PO SCH (10:50)
[2016-06-15] MEDS: AMOXICILLIN TR/POT CLAVULANATE 500-125 MG TAB PO SCH ×2 (11:00→21:05)
[2016-06-15] MEDS: ASPIRIN 325 MG TABLET PO SCH (11:00)
[2016-06-15] MEDS: NYSTATIN TOPICAL POWDER 15 GM TP SCH ×2 (11:01→17:50)
--- NOTE | 2016-06-15 17:03 | PDOC PROGRESS REPORT ---
Subjective Progress Note for:: 06/15/16 Subjective:: Patient denies chest pain, shortness of breath, abdominal pain, nausea, vomiting , fevers, chills, diarrhea, constipation, headache, new onset weakness. Physical Exam Vital Signs: Temp Pulse Resp BP Pulse Ox 98.6 F 78 20 128/74 H 98 06/15/16 07:17 06/15/16 14:00 06/15/16 07:17 06/15/16 07:17 06/15/16 07:17 Intake & Output 06/14/16 06/15/16 06/16/16 06:59 06:59 06:59 Intake Total 5422 4854 Output Total 2910 8675 Balance 1012 1779 Weight 139.2 kg 141.1 kg Exam: General: Obese, older than stated age appearing, chronically ill-appearing, Awake alert and oriented x3, no acute respiratory distress HEENT: AT/NC, oropharynx is moist, pink, no scleral icterus, no conjunctival injection Neck: No JVD, trachea midline Chest: Clear to auscultation bilaterally, no wheezes rhonchi or rales CV: Regular rate and rhythm, normal S1 and S2, no murmur, rub, or gallop Abdomen: Soft, nontender to palpation, nondistended, active bowel sounds; no rebound, rigidity, or guarding Extremities: No cyanosis, clubbing or edema Neuro: Patient functionally blind, Cranial nerves III through XII are grossly intact without focal deficits; awake alert and oriented x3 Psych: Normal mood and affect Results Laboratory Results: 06/14/16 07:10 06/15/16 09:03 06/15/16 09:03 Sodium 139.3 Potassium 4.2 Chloride 110 H Carbon Dioxide 20 L Anion Gap 9 BUN 41 H Creatinine 1.91 H Est GFR ( Amer) 32 L Est GFR (Non-Af Amer) 27 L Glucose 185 H Calcium 8.6 06/11/16 07:40 Troponin I 0.029 Impressions: Chest X-Ray 06/10/16 22:28 IMPRESSION: No acute radiographic finding in the chest. Renal Ultrasound 06/11/16 00:00 IMPRESSION: No hydronephrosis. No renal calculi identified by ultrasound. Assessment & Plan - Diagnosis (1) Sepsis Qualifiers: Sepsis type: Escherichia coli Qualified Code(s): A41.51 - Sepsis due to Escherichia coli [E. coli] Is this a current diagnosis for this admission?: YesPlan: Patient with Escherichia coli sepsis secondary to UTI. Patient also growing out Streptococcus viridans. We'll transition patient to Augmentin renally adjusted. (2) Acute renal failure Qualifiers: Acute renal failure type: unspecified Qualified Code(s): N17.9 - Acute kidney failure, unspecified Is this a current diagnosis for this admission?: YesPlan: Patient had hypotension requiring IV fluid bolus. Will increase patient's IV fluids at this time. Given a high urine sodium as I suspect patient is likely volume replete but is in the nonoliguric phase of ATN. Will consult nephrology. (3) ATN (acute tubular necrosis) Is this a current diagnosis for this admission?: Yes (4) Hyperkalemia Is this a current diagnosis for this admission?: Yes (5) Hypotension Qualifiers: Hypotension type: unspecified hypotension type Qualified Code(s): I95.9 - Hypotension, unspecified Is this a current diagnosis for this admission?: Yes (6) Urinary tract infection Qualifiers: Urinary tract infection type: site unspecified Hematuria presence: with hematuria Qualified Code(s): N39.0 - Urinary tract infection, site not specified Is this a current diagnosis for this admission?: Yes (7) Diabetes mellitus type 2 in obese Is this a current diagnosis for this admission?: Yes (8) Morbid obesity with BMI of 40.0-44.9, adult Is this a current diagnosis for this admission?: Yes (9) Ambulatory dysfunction Is this a current diagnosis for this admission?: YesPlan: Patient will need to go to shelter for rehabilitation. - Time Time Spent with patient: 25-34 minutes Medications reviewed and adjusted accordingly: Yes Anticipated discharge: Acute Rehab Within: when bed available
[2016-06-15] MEDS: INSULIN LISPRO 100 UNIT/ML 3 ML VIAL SUBCUT PRN ×2 (17:49→22:45)
[2016-06-16] MEDS: GABAPENTIN 300 MG CAPSULE PO SCH ×3 (01:47→17:31)
[2016-06-16] MEDS: AMOXICILLIN TR/POT CLAVULANATE 500-125 MG TAB PO SCH (05:43)
[2016-06-16 07:17] LABS: ANION GAP 13 (5-19); BLOOD UREA NITROGEN 37 mg/dL (7-20); CALCIUM 9.1 mg/dL (8.4-10.2); CARBON DIOXIDE 20 mmol/L (22-30); CHLORIDE 110 mmol/L (98-107); CREATININE RESULT 1.77 mg/dL (0.52-1.25); GLUCOSE 166 mg/dL (75-110); POTASSIUM 4.1 mmol/L (3.6-5.0)
[2016-06-16] MEDS: INSULIN LISPRO 100 UNIT/ML 3 ML VIAL SUBCUT PRN ×4 (07:53→23:01)
[2016-06-16] MEDS: ASPIRIN 325 MG TABLET PO SCH (10:04)
[2016-06-16] MEDS: NYSTATIN TOPICAL POWDER 15 GM TP SCH ×2 (10:04→17:34)
[2016-06-16] MEDS ORDERED: FUROSEMIDE 20 MG TABLET PO ONE (15:00)
--- NOTE | 2016-06-16 16:29 | PDOC PROGRESS REPORT ---
Subjective Progress Note for:: 06/16/16 Subjective:: Patient complains of bilateral entire thigh pain circumferentially and bilaterally. Patient reports that she is able to get up on her own. Patient denies chest pain, shortness of breath, abdominal pain, nausea, vomiting, fevers , chills, diarrhea, constipation, headache, new onset weakness. Physical Exam Vital Signs: Temp Pulse Resp BP Pulse Ox 98.1 F 79 20 131/66 H 95 06/15/16 15:35 06/16/16 02:00 06/15/16 15:35 06/15/16 15:35 06/15/16 15:35 Intake & Output 06/15/16 06/16/16 06/17/16 06:59 06:59 06:59 Intake Total 4854 1782 Output Total 3075 700 Balance 1779 1082 Weight 141.1 kg 142.3 kg Exam: General: Obese, older than stated age appearing, chronically ill-appearing, Awake alert and oriented x3, no acute respiratory distress HEENT: AT/NC, oropharynx is moist, pink, no scleral icterus, no conjunctival injection Neck: No JVD, trachea midline Chest: Clear to auscultation bilaterally, no wheezes rhonchi or rales CV: Regular rate and rhythm, normal S1 and S2, no murmur, rub, or gallop Abdomen: Soft, nontender to palpation, nondistended, active bowel sounds; no rebound, rigidity, or guarding Extremities: No cyanosis, clubbing; 2+ pitting edema Neuro: Patient functionally blind, Cranial nerves III through XII are grossly intact without focal deficits; awake alert and oriented x3 Psych: Normal mood and affect Results Laboratory Results: 06/14/16 07:10 06/16/16 05:50 06/15/16 06/16/16 09:03 05:50 Sodium 139.3 143.0 Potassium 4.2 4.1 Chloride 110 H 110 H Carbon Dioxide 20 L 20 L Anion Gap 9 13 BUN 41 H 37 H Creatinine 1.91 H 1.77 H Est GFR ( Amer) 32 L 35 L Est GFR (Non-Af Amer) 27 L 29 L Glucose 185 H 166 H Calcium 8.6 9.1 06/11/16 07:40 Troponin I 0.029 Impressions: Chest X-Ray 06/10/16 22:28 IMPRESSION: No acute radiographic finding in the chest. Renal Ultrasound 06/11/16 00:00 IMPRESSION: No hydronephrosis. No renal calculi identified by ultrasound. Assessment & Plan - Diagnosis (1) Sepsis Qualifiers: Sepsis type: Escherichia coli Qualified Code(s): A41.51 - Sepsis due to Escherichia coli [E. coli] Is this a current diagnosis for this admission?: YesPlan: Patient with Escherichia coli sepsis secondary to UTI. Patient also growing out Streptococcus viridans. We'll transition patient to Augmentin renally adjusted. Last dose of antibiotic tonight. (2) Acute renal failure Qualifiers: Acute renal failure type: unspecified Qualified Code(s): N17.9 - Acute kidney failure, unspecified Is this a current diagnosis for this admission?: YesPlan: Patient had hypotension requiring IV fluid bolus. Likely secondary to ATN. Have stopped patient's IV fluids and is doing well. Greatly improved. (3) ATN (acute tubular necrosis) Is this a current diagnosis for this admission?: Yes (4) Hyperkalemia Is this a current diagnosis for this admission?: Yes (5) Hypotension Qualifiers: Hypotension type: unspecified hypotension type Qualified Code(s): I95.9 - Hypotension, unspecified Is this a current diagnosis for this admission?: Yes (6) Urinary tract infection Qualifiers: Urinary tract infection type: site unspecified Hematuria presence: with hematuria Qualified Code(s): N39.0 - Urinary tract infection, site not specified Is this a current diagnosis for this admission?: Yes (7) Diabetes mellitus type 2 in obese Is this a current diagnosis for this admission?: Yes (8) Morbid obesity with BMI of 40.0-44.9, adult Is this a current diagnosis for this admission?: Yes (9) Ambulatory dysfunction Is this a current diagnosis for this admission?: YesPlan: Reevaluation by physical therapy on Friday will decide patient disposition either inpatient rehabilitation or home with home health. - Time Time Spent with patient: 25-34 minutes Medications reviewed and adjusted accordingly: Yes Anticipated discharge: Home with Homehealth, Acute Rehab Within: within 24 hours
[2016-06-16] MEDS ORDERED: AMOXICILLIN TR/POT CLAVULANATE 500-125 MG TAB PO SCH (22:00)
[2016-06-16] MEDS ORDERED: AMOXICILLIN TR/POT CLAVULANATE 500-125 MG TAB PO ONE (22:00)
[2016-06-16] MEDS: HEPARIN SOD (PORCINE) 5,000 UNIT/ML 1 ML SYRINGE SUBCUT SCH (22:16)
[2016-06-17] MEDS: GABAPENTIN 300 MG CAPSULE PO SCH ×3 (01:13→16:50)
[2016-06-17] MEDS ORDERED: ACETAMINOPHEN 325 MG TABLET PO PRN (03:08)
[2016-06-17 05:54] LABS: ANION GAP 11 (5-19); BLOOD UREA NITROGEN 35 mg/dL (7-20); CALCIUM 9.1 mg/dL (8.4-10.2); CARBON DIOXIDE 22 mmol/L (22-30); CHLORIDE 107 mmol/L (98-107); CREATININE RESULT 1.56 mg/dL (0.52-1.25); GLUCOSE 175 mg/dL (75-110); SODIUM 140.1 mmol/L (137-145)
[2016-06-17] MEDS: HEPARIN SOD (PORCINE) 5,000 UNIT/ML 1 ML SYRINGE SUBCUT SCH ×3 (06:35→22:30)
[2016-06-17] MEDS: SITAGLIPTIN PHOSPHATE 50 MG TABLET PO SCH ×2 (08:39→16:50)
[2016-06-17] MEDS: INSULIN LISPRO 100 UNIT/ML 3 ML VIAL SUBCUT PRN ×3 (08:39→23:04)
[2016-06-17] MEDS: ASPIRIN 325 MG TABLET PO SCH (08:40)
[2016-06-17] MEDS: NYSTATIN TOPICAL POWDER 15 GM TP SCH ×2 (10:13→16:56)
[2016-06-17] MEDS ORDERED: TRAMADOL HCL 50 MG TABLET PO PRN (14:57)
--- NOTE | 2016-06-17 21:26 | PDOC PROGRESS REPORT ---
Subjective Progress Note for:: 06/17/16 Subjective:: Patient reports she's feeling much better. Patient ambulated with physical therapy, and while improved did lose her balance several times. They did not feel that she was safe for home. Patient is accepting of rehabilitation. Patient's son reports that she is quite immobile at home and welcomes the idea of physical rehabilitation. Patient denies chest pain, shortness of breath, abdominal pain, nausea, vomiting , fevers, chills, diarrhea, constipation, headache, new onset weakness. Physical Exam Vital Signs: Temp Pulse Resp BP Pulse Ox 97.9 F 77 18 131/69 H 97 06/17/16 11:08 06/17/16 11:08 06/17/16 11:08 06/17/16 11:08 06/17/16 11:08 Intake & Output 06/16/16 06/17/16 06/18/16 06:59 06:59 06:59 Intake Total 1782 1100 1155 Output Total 700 2250 400 Balance 1082 -1150 755 Weight 142.3 kg 143.2 kg Exam: General: Obese, older than stated age appearing, chronically ill-appearing, Awake alert and oriented x3, no acute respiratory distress HEENT: AT/NC, oropharynx is moist, pink, no scleral icterus, no conjunctival injection Neck: No JVD, trachea midline Chest: Clear to auscultation bilaterally, no wheezes rhonchi or rales CV: Regular rate and rhythm, normal S1 and S2, no murmur, rub, or gallop Abdomen: Soft, nontender to palpation, nondistended, active bowel sounds; no rebound, rigidity, or guarding Extremities: No cyanosis, clubbing; 1+ pitting edema Neuro: Poor vision, Cranial nerves III through XII are grossly intact without focal deficits; awake alert and oriented x3 Psych: Normal mood and affect Results Laboratory Results: 06/14/16 07:10 06/17/16 05:22 06/17/16 05:22 Sodium 140.1 Potassium 4.0 Chloride 107 Carbon Dioxide 22 Anion Gap 11 BUN 35 H Creatinine 1.56 H Est GFR ( Amer) 41 L Est GFR (Non-Af Amer) 34 L Glucose 175 H Calcium 9.1 06/11/16 06/16/16 07:40 14:30 Creatine Kinase 81 Troponin I 0.029 Impressions: Chest X-Ray 06/10/16 22:28 IMPRESSION: No acute radiographic finding in the chest. Renal Ultrasound 06/11/16 00:00 IMPRESSION: No hydronephrosis. No renal calculi identified by ultrasound. Assessment & Plan - Diagnosis (1) Sepsis Qualifiers: Sepsis type: Escherichia coli Qualified Code(s): A41.51 - Sepsis due to Escherichia coli [E. coli] Is this a current diagnosis for this admission?: YesPlan: Patient with Escherichia coli sepsis secondary to UTI. Patient also growing out Streptococcus viridans. Patient has completed 5 days of antibiotic regimen. (2) Acute renal failure Qualifiers: Acute renal failure type: unspecified Qualified Code(s): N17.9 - Acute kidney failure, unspecified Is this a current diagnosis for this admission?: YesPlan: Patient had hypotension requiring IV fluid bolus. Likely secondary to ATN. Have stopped patient's IV fluids and is doing well. Greatly improved. Repeat BMP. (3) ATN (acute tubular necrosis) Is this a current diagnosis for this admission?: Yes (4) Hyperkalemia Is this a current diagnosis for this admission?: Yes (5) Hypotension Qualifiers: Hypotension type: unspecified hypotension type Qualified Code(s): I95.9 - Hypotension, unspecified Is this a current diagnosis for this admission?: Yes (6) Urinary tract infection Qualifiers: Urinary tract infection type: site unspecified Hematuria presence: with hematuria Qualified Code(s): N39.0 - Urinary tract infection, site not specified Is this a current diagnosis for this admission?: Yes (7) Diabetes mellitus type 2 in obese Is this a current diagnosis for this admission?: YesPlan: Resume patient's Januvia and wait until her creatinine is below 1.3 to resume her metformin. Continue diabetic diet. (8) Ambulatory dysfunction Is this a current diagnosis for this admission?: YesPlan: Patient will need inpatient [facility] rehabilitation. Discharge planning consult has been placed. (9) Morbid obesity with BMI of 50.0-59.9, adult Is this a current diagnosis for this admission?: YesPlan: Dietitian has been consulted. - Time Time Spent with patient: 25-34 minutes Medications reviewed and adjusted accordingly: Yes Anticipated discharge: Acute Rehab Within: when bed available
[2016-06-18] MEDS: GABAPENTIN 300 MG CAPSULE PO SCH ×3 (02:28→17:21)
[2016-06-18] MEDS: HEPARIN SOD (PORCINE) 5,000 UNIT/ML 1 ML SYRINGE SUBCUT SCH ×3 (05:42→22:44)
[2016-06-18] MEDS: INSULIN LISPRO 100 UNIT/ML 3 ML VIAL SUBCUT PRN ×3 (08:05→23:03)
[2016-06-18] MEDS: SITAGLIPTIN PHOSPHATE 50 MG TABLET PO SCH ×2 (08:05→17:21)
[2016-06-18] MEDS: ASPIRIN 325 MG TABLET PO SCH (08:05)
[2016-06-18 10:20] LABS: FOLATE 9.91 ng/mL (>2.76)
[2016-06-18] MEDS: NYSTATIN TOPICAL POWDER 15 GM TP SCH ×2 (11:11→17:21)
--- NOTE | 2016-06-18 11:23 | PDOC PROGRESS REPORT ---
Subjective Progress Note for:: 06/18/16 Subjective:: Patient has no new complaints. No issues reported. Patient denies fever, chills, headache, new focal weakness, chest pain, shortness of breath, abdominal pain, nausea, vomiting, diarrhea, constipation. Physical Exam Vital Signs: Temp Pulse Resp BP Pulse Ox 98.9 F 83 20 132/66 H 97 06/18/16 04:09 06/18/16 04:09 06/18/16 04:09 06/18/16 04:09 06/18/16 04:09 Intake & Output 06/17/16 06/18/16 06/19/16 06:59 06:59 06:59 Intake Total 1100 1555 Output Total 2250 400 Balance -1150 1155 Weight 143.2 kg 126.7 kg GENERAL: No acute distress, obese HEENT: Conjunctiva clear, nonicteric, moist mucous membranes, no JVD, midline trachea RESPIRATORY: Clear to auscultation bilaterally, no wheezes, no rhonchi CARDIAC: Regular rate and rhythm, no murmurs/gallops/rubs ABDOMEN: Soft, nondistended, nontender, positive bowel sounds, no rebound, no guarding EXTREMETIES: Trace bilateral lower extremity edema NEUROLOGIC: Alert, oriented to person/place/time, CN's grossly intact, no focal deficits SKIN: No rash, wounds PSYCH: Normal mood, normal affect Results Laboratory Results: 06/14/16 07:10 06/17/16 05:22 06/18/16 06/18/16 08:51 08:51 Retic Count (auto) 2.06 Absolute Retic 0.069 Iron 13.5 L TIBC 282 % Saturation 5 Ferritin 174.00 Vitamin B12 521.0 Folate 9.91 06/11/16 06/16/16 07:40 14:30 Creatine Kinase 81 Troponin I 0.029 Impressions: Chest X-Ray 06/10/16 22:28 IMPRESSION: No acute radiographic finding in the chest. Renal Ultrasound 06/11/16 00:00 IMPRESSION: No hydronephrosis. No renal calculi identified by ultrasound. Assessment & Plan - Diagnosis (1) Sepsis Qualifiers: Sepsis type: Escherichia coli Qualified Code(s): A41.51 - Sepsis due to Escherichia coli [E. coli] Is this a current diagnosis for this admission?: YesPlan: Patient is afebrile and hemodynamically stable. Infection has been treated. (2) Urinary tract infection Qualifiers: Urinary tract infection type: site unspecified Hematuria presence: with hematuria Qualified Code(s): N39.0 - Urinary tract infection, site not specified Is this a current diagnosis for this admission?: YesPlan: Patient completed antibiotic course while in the hospital. Urine culture grew Escherichia coli and streptococcus. (3) Acute renal failure Qualifiers: Acute renal failure type: unspecified Qualified Code(s): N17.9 - Acute kidney failure, unspecified Is this a current diagnosis for this admission?: YesPlan: Kidney function is improving daily. This was likely secondary to sepsis/UTI. (4) Ambulatory dysfunction Is this a current diagnosis for this admission?: YesPlan: Continue physical therapy. Discharge patient to acute rehabilitation once bed available. (5) Morbid obesity with BMI of 45.0-49.9, adult Is this a current diagnosis for this admission?: Yes (6) Hyperkalemia Is this a current diagnosis for this admission?: YesPlan: Secondary to acute kidney injury. Resolved. (7) Hypotension Qualifiers: Hypotension type: unspecified hypotension type Qualified Code(s): I95.9 - Hypotension, unspecified Is this a current diagnosis for this admission?: Yes (8) Diabetes mellitus type 2 in obese Is this a current diagnosis for this admission?: YesPlan: Continue Januvia. Sliding scale insulin coverage. (9) Peripheral neuropathy Qualifiers: Peripheral neuropathy type: polyneuropathy, unspecified Qualified Code(s): G62.9 - Polyneuropathy, unspecified Is this a current diagnosis for this admission?: YesPlan: Possibly contributing to ambulatory dysfunction as well. Continue Neurontin. - Time Time Spent with patient: 35 or more minutes Anticipated discharge: Acute Rehab Within: within 24 hours
[2016-06-19] MEDS: GABAPENTIN 300 MG CAPSULE PO SCH ×3 (01:20→17:07)
[2016-06-19] MEDS: HEPARIN SOD (PORCINE) 5,000 UNIT/ML 1 ML SYRINGE SUBCUT SCH ×3 (05:53→21:35)
[2016-06-19 05:54] LABS: ABSOLUTE BASOPHILS # (AUTO) 0.1 10^3/uL (0.0-0.2); ABSOLUTE EOSINOPHILS # (AUTO) 0.1 10^3/uL (0.0-0.6); ABSOLUTE LYMPHOCYTES (AUTO) 1.2 10^3/uL (0.5-4.7); ABSOLUTE MONOCYTES (AUTO) 0.5 10^3/uL (0.1-1.4); ABSOLUTE NEUT (AUTO) 4.2 10^3/uL (1.7-8.2); BASOPHILS % (AUTO) 0.8 % (0-2); EOSINOPHILS % (AUTO) 2.2 % (0-6); HEMOGLOBIN 9.2 g/dL (12.0-15.5); HGB HCT DIFFERENCE -0.4; LYMPHOCYTES % (AUTO) 19.6 % (13-45); MEAN CORPUSCULAR HEMOGLOBIN 28.7 pg (27.0-33.4); MEAN CORPUSCULAR HGB CONC 32.9 g/dL (32.0-36.0); MEAN CORPUSCULAR VOLUME 87 fl (80-97); MONOCYTES % (AUTO) 7.7 % (3-13); RED BLOOD COUNT 3.22 10^6/uL (3.72-5.28); RED CELL DISTRIBUTION WIDTH 13.5 % (11.5-14.0); SEGMENTED NEUTROPHILS % (AUTO) 69.7 % (42-78)
[2016-06-19 06:14] LABS: ANION GAP 9 (5-19); BLOOD UREA NITROGEN 29 mg/dL (7-20); CALCIUM 9.2 mg/dL (8.4-10.2); CARBON DIOXIDE 25 mmol/L (22-30); CHLORIDE 106 mmol/L (98-107); CREATININE RESULT 1.59 mg/dL (0.52-1.25); GLUCOSE 162 mg/dL (75-110); POTASSIUM 3.8 mmol/L (3.6-5.0); SODIUM 139.5 mmol/L (137-145)
[2016-06-19] MEDS: INSULIN LISPRO 100 UNIT/ML 3 ML VIAL SUBCUT PRN ×4 (07:34→23:16)
[2016-06-19] MEDS: SITAGLIPTIN PHOSPHATE 50 MG TABLET PO SCH ×2 (07:35→15:17)
[2016-06-19] MEDS: NYSTATIN TOPICAL POWDER 15 GM TP SCH ×2 (09:41→17:07)
[2016-06-19] MEDS: ASPIRIN 325 MG TABLET PO SCH (09:42)
--- NOTE | 2016-06-19 15:50 | PDOC PROGRESS REPORT ---
Subjective Progress Note for:: 06/19/16 Subjective:: Patient has no new issues. She is still very weak with ambulation and requires ongoing rehabilitation after hospitalization. Her insurance company will only pay for 80% of rehabilitation stay and patient states she cannot afford to 20%. We are still waiting to hear from one another facility. Patient denies fever, chills, headache, new focal weakness, chest pain, shortness of breath, abdominal pain, nausea, vomiting, diarrhea, constipation. Physical Exam Vital Signs: Temp Pulse Resp BP Pulse Ox 98.1 F 85 20 134/73 H 99 06/19/16 12:19 06/19/16 12:19 06/19/16 12:19 06/19/16 12:19 06/19/16 12:19 Intake & Output 06/18/16 06/19/16 06/20/16 06:59 06:59 06:59 Intake Total 1555 2038 1040 Output Total 400 925 450 Balance 1155 1113 590 Weight 126.7 kg 113.5 kg GENERAL: No acute distress, obese HEENT: Conjunctiva clear, nonicteric, moist mucous membranes, no JVD, midline trachea RESPIRATORY: Clear to auscultation bilaterally, no wheezes, no rhonchi CARDIAC: Regular rate and rhythm, no murmurs/gallops/rubs ABDOMEN: Soft, nondistended, nontender, positive bowel sounds, no rebound, no guarding EXTREMETIES: Trace bilateral lower extremity edema NEUROLOGIC: Alert, oriented to person/place/time, CN's grossly intact, no focal deficits SKIN: No rash, wounds PSYCH: Normal mood, normal affect Results Laboratory Results: 06/19/16 05:23 06/19/16 05:23 06/19/16 06/19/16 05:23 05:23 WBC 6.0 RBC 3.22 L Hgb 9.2 L Hct 28.0 L MCV 87 MCH 28.7 MCHC 32.9 RDW 13.5 Plt Count 247 Seg Neutrophils % 69.7 Lymphocytes % 19.6 Monocytes % 7.7 Eosinophils % 2.2 Basophils % 0.8 Absolute Neutrophils 4.2 Absolute Lymphocytes 1.2 Absolute Monocytes 0.5 Absolute Eosinophils 0.1 Absolute Basophils 0.1 Sodium 139.5 Potassium 3.8 Chloride 106 Carbon Dioxide 25 Anion Gap 9 BUN 29 H Creatinine 1.59 H Est GFR ( Amer) 40 L Est GFR (Non-Af Amer) 33 L Glucose 162 H Calcium 9.2 06/11/16 06/16/16 07:40 14:30 Creatine Kinase 81 Troponin I 0.029 Impressions: Chest X-Ray 06/10/16 22:28 IMPRESSION: No acute radiographic finding in the chest. Renal Ultrasound 06/11/16 00:00 IMPRESSION: No hydronephrosis. No renal calculi identified by ultrasound. Assessment & Plan - Diagnosis (1) Sepsis Qualifiers: Sepsis type: Escherichia coli Qualified Code(s): A41.51 - Sepsis due to Escherichia coli [E. coli] Is this a current diagnosis for this admission?: YesPlan: Patient is afebrile and hemodynamically stable. Infection has been treated. (2) Urinary tract infection Qualifiers: Urinary tract infection type: site unspecified Hematuria presence: with hematuria Qualified Code(s): N39.0 - Urinary tract infection, site not specified Is this a current diagnosis for this admission?: YesPlan: Patient completed antibiotic course while in the hospital. Urine culture grew Escherichia coli and streptococcus. (3) Acute renal failure Qualifiers: Acute renal failure type: unspecified Qualified Code(s): N17.9 - Acute kidney failure, unspecified Is this a current diagnosis for this admission?: YesPlan: Kidney function is improving daily. This was likely secondary to sepsis/UTI. (4) Ambulatory dysfunction Is this a current diagnosis for this admission?: YesPlan: She is still very weak with ambulation and requires ongoing rehabilitation after hospitalization. Her insurance company will only pay for 80% of rehabilitation stay and patient states she cannot afford to 20%. We are still waiting to hear from one another facility. (5) Morbid obesity with BMI of 45.0-49.9, adult Is this a current diagnosis for this admission?: Yes (6) Hyperkalemia Is this a current diagnosis for this admission?: YesPlan: Secondary to acute kidney injury. Resolved. (7) Hypotension Qualifiers: Hypotension type: unspecified hypotension type Qualified Code(s): I95.9 - Hypotension, unspecified Is this a current diagnosis for this admission?: Yes (8) Diabetes mellitus type 2 in obese Is this a current diagnosis for this admission?: YesPlan: Continue Januvia. Sliding scale insulin coverage. (9) Peripheral neuropathy Qualifiers: Peripheral neuropathy type: polyneuropathy, unspecified Qualified Code(s): G62.9 - Polyneuropathy, unspecified Is this a current diagnosis for this admission?: YesPlan: Possibly contributing to ambulatory dysfunction as well. Continue Neurontin. - Time Time Spent with patient: 25-34 minutes
[2016-06-20] MEDS: GABAPENTIN 300 MG CAPSULE PO SCH ×3 (02:23→17:32)
[2016-06-20] MEDS: HEPARIN SOD (PORCINE) 5,000 UNIT/ML 1 ML SYRINGE SUBCUT SCH ×3 (05:09→22:34)
[2016-06-20] MEDS: INSULIN LISPRO 100 UNIT/ML 3 ML VIAL SUBCUT PRN ×4 (07:28→22:35)
[2016-06-20] MEDS: SITAGLIPTIN PHOSPHATE 50 MG TABLET PO SCH ×2 (07:28→15:07)
[2016-06-20] MEDS: ASPIRIN 325 MG TABLET PO SCH (09:22)
[2016-06-20] MEDS: NYSTATIN TOPICAL POWDER 15 GM TP SCH ×2 (09:22→17:33)
--- NOTE | 2016-06-20 16:44 | PDOC PROGRESS REPORT ---
Subjective Progress Note for:: 06/20/16 Subjective:: Patient has no new issues. She is still very weak with ambulation and requires ongoing rehabilitation after hospitalization. Her insurance company will only pay for 80% of rehabilitation stay and patient states she cannot afford to 20%. Patient has decided to go home with home physical therapy. Patient denies fever, chills, headache, new focal weakness, chest pain, shortness of breath, abdominal pain, nausea, vomiting, diarrhea, constipation. Physical Exam Vital Signs: Temp Pulse Resp BP Pulse Ox 98.2 F 77 20 137/79 H 99 06/20/16 12:32 06/20/16 12:32 06/20/16 12:32 06/20/16 12:32 06/20/16 12:32 Intake & Output 06/19/16 06/20/16 06/21/16 06:59 06:59 06:59 Intake Total 2038 2510 642 Output Total 223 878 8663 Balance 1113 1660 -608 Weight 113.5 kg 116.4 kg GENERAL: No acute distress, obese HEENT: Conjunctiva clear, nonicteric, moist mucous membranes, no JVD, midline trachea RESPIRATORY: Clear to auscultation bilaterally, no wheezes, no rhonchi CARDIAC: Regular rate and rhythm, no murmurs/gallops/rubs ABDOMEN: Soft, nondistended, nontender, positive bowel sounds, no rebound, no guarding EXTREMETIES: Trace bilateral lower extremity edema NEUROLOGIC: Alert, oriented to person/place/time, CN's grossly intact, no focal deficits SKIN: No rash, wounds PSYCH: Normal mood, normal affect Results Laboratory Results: 06/19/16 05:23 06/19/16 05:23 06/11/16 06/16/16 07:40 14:30 Creatine Kinase 81 Troponin I 0.029 Impressions: Chest X-Ray 06/10/16 22:28 IMPRESSION: No acute radiographic finding in the chest. Renal Ultrasound 06/11/16 00:00 IMPRESSION: No hydronephrosis. No renal calculi identified by ultrasound. Assessment & Plan - Diagnosis (1) Sepsis Qualifiers: Sepsis type: Escherichia coli Qualified Code(s): A41.51 - Sepsis due to Escherichia coli [E. coli] Is this a current diagnosis for this admission?: YesPlan: Patient is afebrile and hemodynamically stable. Infection has been treated. (2) Urinary tract infection Qualifiers: Urinary tract infection type: site unspecified Hematuria presence: with hematuria Qualified Code(s): N39.0 - Urinary tract infection, site not specified Is this a current diagnosis for this admission?: YesPlan: Patient completed antibiotic course while in the hospital. Urine culture grew Escherichia coli and streptococcus. (3) Acute renal failure Qualifiers: Acute renal failure type: unspecified Qualified Code(s): N17.9 - Acute kidney failure, unspecified Is this a current diagnosis for this admission?: YesPlan: Kidney function is improving daily. This was likely secondary to sepsis/UTI. (4) Ambulatory dysfunction Is this a current diagnosis for this admission?: YesPlan: She is still very weak with ambulation and requires ongoing rehabilitation after hospitalization. Her insurance company will only pay for 80% of rehabilitation stay and patient states she cannot afford to 20%. She will discharge home in the morning with home physical therapy. (5) Morbid obesity with BMI of 45.0-49.9, adult Is this a current diagnosis for this admission?: Yes (6) Hyperkalemia Is this a current diagnosis for this admission?: YesPlan: Secondary to acute kidney injury. Resolved. (7) Hypotension Qualifiers: Hypotension type: unspecified hypotension type Qualified Code(s): I95.9 - Hypotension, unspecified Is this a current diagnosis for this admission?: Yes (8) Diabetes mellitus type 2 in obese Is this a current diagnosis for this admission?: YesPlan: Continue Januvia. Sliding scale insulin coverage. (9) Peripheral neuropathy Qualifiers: Peripheral neuropathy type: polyneuropathy, unspecified Qualified Code(s): G62.9 - Polyneuropathy, unspecified Is this a current diagnosis for this admission?: YesPlan: Possibly contributing to ambulatory dysfunction as well. Continue Neurontin. - Time Time Spent with patient: 25-34 minutes
[2016-06-21] MEDS: GABAPENTIN 300 MG CAPSULE PO SCH ×2 (01:46→09:44)
[2016-06-21 04:49] LABS: ABSOLUTE BASOPHILS # (AUTO) 0.1 10^3/uL (0.0-0.2); ABSOLUTE EOSINOPHILS # (AUTO) 0.1 10^3/uL (0.0-0.6); ABSOLUTE LYMPHOCYTES (AUTO) 1.4 10^3/uL (0.5-4.7); ABSOLUTE MONOCYTES (AUTO) 0.5 10^3/uL (0.1-1.4); ABSOLUTE NEUT (AUTO) 5.4 10^3/uL (1.7-8.2); BASOPHILS % (AUTO) 0.7 % (0-2); EOSINOPHILS % (AUTO) 1.4 % (0-6); HEMATOCRIT 27.2 % (36.0-47.0); HEMOGLOBIN 9.1 g/dL (12.0-15.5); HGB HCT DIFFERENCE 0.1; LYMPHOCYTES % (AUTO) 18.7 % (13-45); MEAN CORPUSCULAR HEMOGLOBIN 29.4 pg (27.0-33.4); MEAN CORPUSCULAR HGB CONC 33.5 g/dL (32.0-36.0); MEAN CORPUSCULAR VOLUME 88 fl (80-97); MONOCYTES % (AUTO) 6.4 % (3-13); SEGMENTED NEUTROPHILS % (AUTO) 72.8 % (42-78); WHITE BLOOD COUNT 7.4 10^3/uL (4.0-10.5)
[2016-06-21 05:00] LABS: ANION GAP 7 (5-19); BLOOD UREA NITROGEN 27 mg/dL (7-20); CALCIUM 9.4 mg/dL (8.4-10.2); CARBON DIOXIDE 31 mmol/L (22-30); CHLORIDE 103 mmol/L (98-107); CREATININE RESULT 1.56 mg/dL (0.52-1.25); GLUCOSE 177 mg/dL (75-110); POTASSIUM 4.4 mmol/L (3.6-5.0); SODIUM 140.6 mmol/L (137-145)
[2016-06-21] MEDS: HEPARIN SOD (PORCINE) 5,000 UNIT/ML 1 ML SYRINGE SUBCUT SCH (06:05)
[2016-06-21] MEDS: SITAGLIPTIN PHOSPHATE 50 MG TABLET PO SCH (08:09)
[2016-06-21] MEDS: ASPIRIN 325 MG TABLET PO SCH (09:44)
[2016-06-21] MEDS: NYSTATIN TOPICAL POWDER 15 GM TP SCH (09:45)
[2016-06-21] MEDS: INSULIN LISPRO 100 UNIT/ML 3 ML VIAL SUBCUT PRN (11:54)
[2016-06-21 12:05] VITALS: BP 101/70
--- NOTE | 2016-06-21 17:58 | PDOC DISCHARGE SUMMARY ---
General - Admit/Disc Date/PCP Admission Date/Primary Care Provider: 06/11/16 06:16 MODE PEREZ Discharge Date: 06/21/16 - Discharge Diagnosis (1) Urinary tract infection Is this a current diagnosis for this admission?: YesSummary: Status post antibiotic therapy. (2) Sepsis Is this a current diagnosis for this admission?: YesSummary: Resolved with standard treatment. (3) Acute renal failure Is this a current diagnosis for this admission?: YesSummary: Renal function studies gradually corrected back to baseline. (4) Hyperkalemia Is this a current diagnosis for this admission?: YesSummary: Resolved. (5) HTN (hypertension) Is this a current diagnosis for this admission?: YesSummary: Controlled on current Rx. (6) Diabetes mellitus type 2 in obese Is this a current diagnosis for this admission?: YesSummary: Controlled on current Rx. (7) Peripheral neuropathy Is this a current diagnosis for this admission?: Yes (8) Ambulatory dysfunction Is this a current diagnosis for this admission?: Yes (9) Morbid obesity with BMI of 45.0-49.9, adult Is this a current diagnosis for this admission?: Yes - Additional Information Resuscitation Status: Full Code Discharge Diet: Cardiac, Diabetic Discharge Activity: Activity As Tolerated, Slowly Increase Activity, Walk Frequently Home Medications: Gabapentin [Neurontin 300 mg Capsule] 300 mg PO TID 09/10/13 Aspirin [Aspirin 325 mg Tablet] 325 mg PO DAILY 06/11/16 Nystatin [Mycostatin Topical Powder 15 gm] 1 applic TP BID #1 bottle 06/21/16 Sitagliptin Phosphate [Januvia 50 mg Tablet] 50 mg PO BIDACBS #60 tablet History of Present Illness History of Present Illness: ANNETTE GIBBS is a 61 year old morbidly obese type II diabetic female with underlying lower extremity diabetic neuropathy, easy bruising, and history of nephrolithiasis who presents to the emergency room for evaluation of approximate 24-hour history of progressive generalized weakness, several episodes of nausea and vomiting, and "lzi" diarrhea. Weakness has progressed to the point since the onset of symptoms that she is not able to walk. No unusual oral intake. No friends or family with similar complaints. No fever or chills, chest or abdominal pain. In fact, denies any pain at all. Of note, very difficult getting any type of significant history from patient. Virtually all questions are answered with a simple "yes" or "no." She elaborates on virtually nothing. 2 sons are present by her side, with her approval, and do add a bit more information, but not much. Hospital Course Hospital Course: The patient was admitted with a 24-hour history of progressive generalized weakness, nausea and vomiting, and possible diarrhea. The signs and symptoms were felt to be due to urinary tract infection with early sepsis. She improved with the antibiotic treatment, IV fluids, etc. Mild acute renal failure with hyperkalemia also resolved with standard therapy. Her weakness improved. By the time of discharge she had completed her antibiotics and was feeling generally better. She was discharged home with home health. Physical Exam Vital Signs: Temp Pulse Resp BP Pulse Ox 98.1 F 78 15 101/70 99 06/21/16 12:03 06/21/16 12:03 06/21/16 12:03 06/21/16 12:03 06/21/16 12:03 Intake & Output 06/20/16 06/21/16 06/22/16 06:59 06:59 06:59 Intake Total 2510 1704 Output Total 850 1550 Balance 1660 154 Weight 116.4 kg 115 kg General appearance: PRESENT: no acute distress, obese Head exam: PRESENT: atraumatic, normocephalic Eye exam: PRESENT: conjunctiva pink, EOMI, PERRLA. ABSENT: scleral icterus Ear exam: PRESENT: normal external ear exam Mouth exam: PRESENT: moist, tongue midline Respiratory exam: PRESENT: clear to auscultation fara. ABSENT: rales, rhonchi, wheezes Cardiovascular exam: PRESENT: RRR. ABSENT: diastolic murmur, gallop, systolic murmur GI/Abdominal exam: PRESENT: normal bowel sounds, soft. ABSENT: distended, guarding, mass, organolmegaly, rebound, tenderness Extremities exam: PRESENT: full ROM, other - trace bilateral pretibial edema. ABSENT: calf tenderness, clubbing Neurological exam: PRESENT: alert, awake, oriented to person, oriented to place , oriented to time, oriented to situation, CN II-XII grossly intact. ABSENT: motor sensory deficit Psychiatric exam: PRESENT: appropriate affect, normal mood. ABSENT: homicidal ideation, suicidal ideation Skin exam: PRESENT: dry, intact, warm. ABSENT: cyanosis, rash Results Laboratory Results: 06/21/16 04:32 06/21/16 04:32 06/21/16 06/21/16 04:32 04:32 WBC 7.4 RBC 3.10 L Hgb 9.1 L Hct 27.2 L MCV 88 MCH 29.4 MCHC 33.5 RDW 14.0 Plt Count 248 Seg Neutrophils % 72.8 Lymphocytes % 18.7 Monocytes % 6.4 Eosinophils % 1.4 Basophils % 0.7 Absolute Neutrophils 5.4 Absolute Lymphocytes 1.4 Absolute Monocytes 0.5 Absolute Eosinophils 0.1 Absolute Basophils 0.1 Sodium 140.6 Potassium 4.4 Chloride 103 Carbon Dioxide 31 H Anion Gap 7 BUN 27 H Creatinine 1.56 H Est GFR ( Amer) 41 L Est GFR (Non-Af Amer) 34 L Glucose 177 H Calcium 9.4 06/11/16 06/16/16 07:40 14:30 Creatine Kinase 81 Troponin I 0.029 Impressions: Chest X-Ray 06/10/16 22:28 IMPRESSION: No acute radiographic finding in the chest. Renal Ultrasound 06/11/16 00:00 IMPRESSION: No hydronephrosis. No renal calculi identified by ultrasound. Qualifiers PATEINT BEING DISCHARGED WITH ANY OF THE FOLLOWING DIAGNOSIS?: No Plan Time Spent: Less than 30 Minutes
== END 2016-06-21 12:43 | disposition home health service (06) | DRG 871 ==
LOC: ER 20:31 → UNDOADMIN 06-11 02:04 → EH 06-11 02:04 → 3W 06-11 06:00 → EH 06-11 06:00 → 3W 06-11 06:16 → 5 06-21 02:58
PROVIDERS: ADMIT Family Medicine; ATTEND Family Medicine
DX: A41.51 Sepsis due to Escherichia coli [E. coli] (principal); N17.0 Acute kidney failure with tubular necrosis; N39.0 Urinary tract infection, site not specified; Z68.41 Body mass index [BMI] 40.0-44.9, adult; E87.5 Hyperkalemia; I10 Essential (primary) hypertension; E66.01 Morbid (severe) obesity due to excess calories; E11.40 Type 2 diabetes mellitus with diabetic neuropathy, unspecified; H54.8 Legal blindness, as defined in USA; Z79.82 Long term (current) use of aspirin; Z79.899 Other long term (current) drug therapy
CPT/HCPCS: 36415; 36600; 71010; 76770; 80048; 80053; 81001; 82040; 82272; 82550; 82553; 82570; 82607; 82728; 82746; 82803; 82962; 83540; 83550; 83615; 83690; 83735; 84300; 84484; 85025; 85027; 85045; 86022; 87040; 87045; 87086; 87088; 87186; 87205; 87493; 89055; 93005; 93010; 96374; 96375; 99291; J0692; J0696; J1335; J1644; J1815; J3370; J3475; J3490; J7030; J7040; J7060